=== PATIENT | female | born 1945 | race Caucasian/White ===

== ENCOUNTER 2017-12-04 10:53 | Day surgery (SDC) | payer MEDICARE ==
[2017-12-02 12:52] VITALS: BMI 28.3
[2017-12-04] MEDS ORDERED: ceFAZolin IV 1 gm in Dextrose 1 GM/50 ML BAG IVPB ONE (13:32)
[2017-12-04] MEDS ORDERED: Bupivacaine 0.25% Inj(30mL) ONE (13:33)
[2017-12-04] MEDS ORDERED: Lidocaine Hydrochloride 0 ML INJ ONE (13:33)
[2017-12-04] MEDS ORDERED: HYDROmorphone 0.5 mg/0.5 ml ISec IVP PRN (14:29)
[2017-12-04] MEDS ORDERED: Oxycodone/Acetaminophen 5/325 mg Tab PO PRN (14:40)
[2017-12-04 15:39] VITALS: PULSE 89; RESP 16; O2SAT 98
[2017-12-04 16:22] VITALS: BP 158/71; TEMP 97.4
--- NOTE | 2017-12-05 01:08 | OP ---
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 POSTOPERATIVE DIAGNOSES: Hemangioma and varicose veins of the right leg. PROCEDURE PERFORMED: 1. Wide and deep excision, hemangioma of the right leg. 2. Stab phlebectomy of varicose veins of the right leg. SURGEON: Andrea Clemente MD ANESTHESIA: General. BLOOD LOSS: 30 mL. POSTOP CONDITION: Stable. INDICATIONS FOR SURGERY: This is a 72-year-old female who presents with painful hemangioma of the right leg associated with several large varicose veins. She now presents for excision. DESCRIPTION OF PROCEDURE: The patient was taken to the operative room. General anesthesia was administered. The patient was placed in a right lateral decubitus position. The right posterior leg was prepped and draped. A generous elliptical incision was made surrounding the mass. It was dissected into the fascia and removed. Bleeding was controlled using the Bovie. A larger blood vessel was repaired. The wound was irrigated with saline. Generous full thickness tissue flaps were raised including fascia along with counter incision until an advancement flap closure was performed with multiple layers of Monocryl, subcuticular Monocryl and glue. Total square surface area closed was approximately 42 sq cm. Next, the remaining varicose veins were removed with multiple incisions. The incision is closed with subcuticular Monocryl. The patient tolerated the procedure well. Returned to recovery room in stable condition. Andrea Clemente MD
== END 2017-12-04 16:20 | disposition home or self-care (01) ==
LOC: C.OPSURG 10:53
PROVIDERS: ATTEND Surgery
DX: I83.10 Varicose veins of unspecified lower extremity with inflammation (principal); D18.09 Hemangioma of other sites
CPT/HCPCS: 11404; 37765; 82948; 88304; J0690

== ENCOUNTER 2018-01-30 18:51 | Emergency (ER) | payer MEDICARE ==
[2018-01-30 18:51] VITALS: BMI 28.3
[2018-01-30 19:27] VITALS: TEMP 97.8
[2018-01-30] MEDS ORDERED: Iohexol 240 (50 ml) PO ONE (20:03)
--- NOTE | 2018-01-30 20:03 | C.PDOC ---
History Of Present Illness 72 year old female presents to the ER with a complaint of intermittent lower abdominal pain for the past few days. Patient notes the pain occasionally radiates from the back. Denies nausea, vomiting, or dysuria. Chief Complaint (Nursing): Abdominal Pain History Per: Patient History/Exam Limitations: no limitations Onset/Duration Of Symptoms: Days, Intermittent Episodes Current Symptoms Are (Timing): Still Present Location Of Pain/Discomfort: RLQ, LLQ Quality Of Discomfort: Unable To Describe Associated Symptoms: denies: Fever, Chills, Nausea, Vomiting, Urinary Symptoms Exacerbating Factors: None Alleviating Factors: None Recent travel outside of the [place]: No Abnormal Vaginal Bleeding: No Past Medical History Reviewed: Historical Data, Nursing Documentation, Vital Signs Vital Signs: Last Vital Signs Temp 97.8 F 01/30/18 19:23 Pulse 93 H 01/30/18 21:26 Resp 18 01/30/18 21:26 BP 171/65 H 01/30/18 21:26 Pulse Ox 98 01/30/18 21:26 - Medical History PMH: Anxiety, Asthma (NOT ON INHALERS), COPD, Diabetes, HTN, Hypercholesterolemia, Hypothyroidism Surgical History: Appendectomy, Cholecystectomy, Endoscopy (PT. UNSURE), Tonsillectomy Family History: States: Unknown Family Hx - Social History Hx Tobacco Use: No Hx Alcohol Use: No Hx Substance Use: No - Immunization History Hx Tetanus Toxoid Vaccination: No Hx Influenza Vaccination: No Hx Pneumococcal Vaccination: No Review Of Systems Constitutional: Negative for: Fever, Chills ENT: Negative for: Ear Pain, Ear Discharge Cardiovascular: Negative for: Chest Pain, Palpitations Respiratory: Negative for: Cough, Shortness of Breath Gastrointestinal: Negative for: Nausea, Vomiting Genitourinary: Negative for: Dysuria Physical Exam - Physical Exam Appears: Non-toxic, No Acute Distress Skin: Normal Color, Warm, Dry Head: Atraumatic, Normacephalic Eye(s): bilateral: Normal Inspection Oral Mucosa: Moist Chest: Symmetrical, No Tenderness Cardiovascular: Rhythm Regular Respiratory: Normal Breath Sounds, No Rales, No Rhonchi, No Wheezing Gastrointestinal/Abdominal: Soft, Tenderness (Mild bilateral lower), No Guarding , No Rebound Back: No CVA Tenderness Neurological/Psych: Oriented x3, Normal Speech ED Course And Treatment - Laboratory Results Result Diagrams: 01/30/18 20:08 01/30/18 20:08 O2 Sat by Pulse Oximetry: 100 (Room air) Pulse Ox Interpretation: Normal Progress Note: CT abd/pel, blood work, and urinalysis ordered. Disposition Counseled Patient/Family Regarding: Diagnosis - Disposition Referrals: [facility] [Outside] Disposition: HOME/ ROUTINE Disposition Time: 23:08 Condition: STABLE Prescriptions: Ciprofloxacin [Cipro] 1 tab PO BID #14 tab traMADol/Acetaminophen [Ultracet 325 MG-37.5 MG] 1 tab PO Q6 #10 tab Instructions: Urinary Tract Infections in Adults Forms: [employer] (Tanzanian) - POA Present On Arrival: None - Clinical Impression Clinical Impression: UTI (urinary tract infection) - Scribe Statement The provider has reviewed the documentation as recorded by the Scribe Martínez Mckinney All medical record entries made by the Scribe were at my direction and personally dictated by me. I have reviewed the chart and agree that the record accurately reflects my personal performance of the history, physical exam, medical decision making, and the department course for this patient. I have also personally directed, reviewed, and agree with the discharge instructions and disposition.
--- NOTE | 2018-01-30 20:05 | C.PDOC ---
Chief Complaint (Nursing): Abdominal Pain Past Medical History Vital Signs: Last Vital Signs Temp 97.8 F 01/30/18 19:23 Pulse 99 H 01/30/18 19:23 Resp 18 01/30/18 19:23 BP 178/80 H 01/30/18 19:23 Pulse Ox 100 01/30/18 19:23 - Medical History PMH: Anxiety, Asthma (NOT ON INHALERS), COPD, Diabetes, HTN, Hypercholesterolemia, Hypothyroidism Denies: Chronic Kidney Disease Surgical History: Appendectomy, Cholecystectomy, Endoscopy (PT. UNSURE), Tonsillectomy - Social History Hx Tobacco Use: No Hx Alcohol Use: No Hx Substance Use: No - Immunization History Hx Tetanus Toxoid Vaccination: No Hx Influenza Vaccination: No Hx Pneumococcal Vaccination: No ED Course And Treatment O2 Sat by Pulse Oximetry: 100 Disposition - Disposition
[2018-01-30] MEDS ORDERED: Iohexol 240 (50 ml) ONE (20:07)
[2018-01-30] MEDS ORDERED: Sodium Chloride 0.9% 1,000 ML ONE (20:11)
[2018-01-30 20:17] LABS: BASO # 0.1 K/uL (0.0-0.2); BASO % 1.4 % (0.0-2.0); EOS # 0.5 K/uL (0.0-0.7); EOS % 8.1 % (0.0-4.0); HEMOGLOBIN 12.8 g/dL (11.0-16.0); LYMPH # 1.3 K/uL (1.0-4.3); LYMPH % 18.7 % (20.0-40.0); MEAN CELL VOLUME 83.2 fL (81.0-99.0); MEAN CORPUSCULAR HGB CONC 33.7 g/dL (33.0-37.0); MEAN PLATELET VOLUME 8.7 fL (7.2-11.7); MONO # 0.5 K/uL (0.0-0.8); MONO % 7.8 % (0.0-10.0); NEUT # 4.3 K/uL (1.8-7.0); RBC 4.57 Mil/uL (3.80-5.20); WHITE BLOOD COUNT 6.7 K/uL (4.8-10.8)
[2018-01-30 20:30] LABS: ALB/GLOB RATIO 1.2 (1.0-2.1); ALBUMIN 4.4 g/dL (3.5-5.0); ALT/SGPT 29 U/L (9-52); AST/SGOT 22 U/L (14-36); BLOOD UREA NITROGEN 11 mg/dL (7-17); GFR AFRICAN-AMERICAN > 60; GFR NON-AFRICAN AMERICAN > 60; LIPASE 78 U/L (23-300)
[2018-01-30 20:31] LABS: SQUAMOUS EPITHIAL 1 /hpf (0-5); URINE AMORPHOUS SEDIMENT RARE /ul (<OCC); URINE BACTERIA FEW (<OCC); URINE BILIRUBIN NEGATIVE (NEGATIVE); URINE BLOOD 2+ (NEGATIVE); URINE CLARITY Hazy (Clear); URINE COLOR Yellow (YELLOW); URINE GLUCOSE (UA) NORMAL (Normal); URINE LEUKOCYTE ESTERASE TRACE Leu/uL (Negative); URINE PROTEIN NEGATIVE (NEGATIVE); URINE UROBILINOGEN NORMAL mg/dL (0.2-1.0)
[2018-01-30] MEDS ORDERED: Iohexol 300 100 ML IJ ONE (20:33)
--- NOTE | 2018-01-30 23:02 | CT ---
EXAM: CT Abdomen and Pelvis With Intravenous Contrast CLINICAL HISTORY: 72 years old, female; Pain; Abdominal pain; Periumbilical; Additional info: Abd pain/ HX of renal colic TECHNIQUE: Axial computed tomography images of the abdomen and pelvis with intravenous contrast. All CT scans at this facility use one or more dose reduction techniques, viz.: automated exposure control; ma/kV adjustment per patient size (including targeted exams where dose is matched to indication; i.e. head); or iterative reconstruction technique. Coronal and sagittal reformatted images were created and reviewed. CONTRAST: 100 mL of visipaque 320 administered intravenously. COMPARISON: No relevant prior studies available. FINDINGS: Lung bases: Unremarkable. No mass. No consolidation. ABDOMEN: Liver: There is a hepatic cyst. There is a mild decrease in hepatic parenchymal density, consistent with fatty infiltration. Gallbladder and bile ducts: There has been a cholecystectomy. No ductal dilation. Pancreas: Unremarkable. No mass. No ductal dilation. Spleen: Unremarkable. No splenomegaly. Adrenals: Unremarkable. No mass. Kidneys and ureters: Prominent extrarenal pelvis bilaterally. No distal ureteral stone. Stomach and bowel: There is no wall thickening or pericolonic stranding to suggest colitis. No obstruction. PELVIS: Appendix: No findings to suggest acute appendicitis. Bladder: Unremarkable. No mass. Reproductive: Unremarkable as visualized. ABDOMEN and PELVIS: Intraperitoneal space: Unremarkable. No free air. No significant fluid collection. Bones/joints: Degenerative changes at the spine. No acute fracture. No dislocation. Soft tissues: There is a fat-containing umbilical hernia. Vasculature: The vasculature demonstrates diffuse mild atherosclerotic calcification. No abdominal aortic aneurysm. Lymph nodes: Unremarkable. No enlarged lymph nodes. IMPRESSION: No evidence of an acute intra-abdominal or pelvic abnormality. Fatty liver. Liver cyst. Cholecystectomy.
[2018-01-30 23:44] VITALS: BP 154/80; PULSE 64; RESP 20; O2SAT 98
== END 2018-01-30 23:49 | disposition home or self-care (01) ==
LOC: C.ER 18:51
DX: N39.0 Urinary tract infection, site not specified (principal); E78.00 Pure hypercholesterolemia, unspecified; I10 Essential (primary) hypertension; E03.9 Hypothyroidism, unspecified
CPT/HCPCS: 74177; 80053; 81001; 83690; 85025; 87086; 96374; 99285; J1885; Q9966; Q9967